=== PATIENT | female | born 1985 | race Caucasian/White ===

== ENCOUNTER 2023-09-29 04:11 | Day surgery (SDC) | payer OTHER ==
[2023-09-28 10:11] VITALS: BMI 31.8
[~2023-09-29 04:11] MED LIST: LIDOCAINE HCL 1%, 10 MG/ML (20ML VIAL) INF ONE; ceFAZolin SODIUM 1 GM VIAL IVPB ONE
[2023-09-29 07:01] LABS: BASO % 0.7 % (0-2.0); HEMATOCRIT 40.6 % (32.4-45.2); HEMOGLOBIN 13.2 GM/dL (10.7-15.3); MCH 28.9 pg (25.7-33.7); MONO % 6.3 % (3.8-10.2); WHITE BLOOD COUNT 10.8 K/mm3 (4.0-10.0)
[2023-09-29 07:04] LABS: EOS % 1.2 % (0-4.5); LYMPH % 31.3 % (8-40); MCHC 32.4 g/dl (32.0-36.0); MEAN PLT VOLUME 8.9 fl (7.5-11.1); NEUT % 60.5 % (42.8-82.8); PLATELET COUNT 249 10^3/uL (134-434); RBC 4.56 M/mm3 (3.60-5.2); RDW 13.2 % (11.6-15.6)
[2023-09-29] MEDS ORDERED: LIDOCAINE HCL 1%, 10 MG/ML (20ML VIAL) ONE (07:21)
[2023-09-29 07:29] LABS: BLOOD UREA NITROGEN 15.6 mg/dL (7-18); CALCIUM 8.3 mg/dL (8.5-10.1)
[2023-09-29 07:32] LABS: CREATININE 0.7 mg/dL (0.55-1.3)
[2023-09-29 07:34] LABS: BILIRUBIN,TOTAL 0.5 mg/dL (0.2-1)
[2023-09-29] MEDS ORDERED: SUCCINYLCHOLINE CHLORIDE 200 MG/10 ML SYRINGE ONE (07:42)
[2023-09-29] MEDS ORDERED: ceFAZolin SODIUM 1 GM VIAL ONE (07:43)
[2023-09-29] MEDS ORDERED: ONDANSETRON 4 MG/2 ML VIAL ONE (07:43)
[2023-09-29] MEDS ORDERED: LIDOCAINE HCL/PF 2% SDV 5ML VIAL ONE (07:43)
[2023-09-29] MEDS ORDERED: DEXAMETHASONE SOD PHOSPHATE 4 MG/1 ML VIAL ONE (07:43)
[2023-09-29] MEDS ORDERED: SODIUM CHLORIDE 0.9% P/F 10 ML VIAL IJ ONE (07:43)
[2023-09-29] MEDS ORDERED: ACETAMINOPHEN INJECTION 100 ML IVPB ONE (07:48)
[2023-09-29] MEDS ORDERED: MIDAZOLAM HCL 2 MG/2 ML SINGLE DOSE VIAL ONE (07:51)
[2023-09-29] MEDS ORDERED: FENTANYL CITRATE/PF 50 MCG/ML VIAL ONE (07:52)
[2023-09-29] MEDS ORDERED: PROPOFOL 80 ML ONE (07:54)
[2023-09-29 08:05] LABS: INR 0.97 (0.83-1.09); PROTHROMBIN TIME (PATIENT) 11.3 SEC (9.7-13.0)
[2023-09-29 08:09] LABS: EPI CELLS 13 /uL (0-25.1); HYALINE CASTS 0 /uL (0-3.1); PH,URINE 5.5 (5.0-8.0); URINE APPEARANCE CLEAR; URINE BACTERIA 5 /uL (0-1359); URINE BILIRUBIN NEGATIVE (NEGATIVE); URINE COLOR YELLOW; URINE GLUCOSE (UA) NEGATIVE (NEGATIVE); URINE KETONE NEGATIVE (NEGATIVE); URINE LEUK ESTERASE 1+ (NEGATIVE); URINE NITRITE NEGATIVE (NEGATIVE); URINE PROTEIN NEGATIVE (NEGATIVE); URINE RBC 4 /uL (0-23.9); URINE UROBILINOGEN 0.2 mg/dL (0.2-1.0); URINE WBC 113 /uL (0-25.8)
[2023-09-29] MEDS ORDERED: ceFAZolin SODIUM 1 GM VIAL IVPB ONE (09:30)
[2023-09-29] MEDS ORDERED: PROPOFOL 20 ML ONE (09:37)
[2023-09-29] MEDS ORDERED: LIDOCAINE HCL 1%, 10 MG/ML (20ML VIAL) INF ONE ×2 (09:39)
[2023-09-29] MEDS ORDERED: GLYCOPYRROLATE 0.2 MG/1 ML VIAL ONE (09:46)
[2023-09-29] MEDS ORDERED: KETAMINE HCL 200 MG/20 ML VIAL ONE (09:46)
[2023-09-29] MEDS ORDERED: LACTATED RINGERS SOLUTION 1,000 ML IV SCH (10:30)
[2023-09-29] MEDS ORDERED: oxyCODONE HCL 5 MG TABLET PO PRN (10:30)
[2023-09-29] MEDS ORDERED: ONDANSETRON 4 MG/2 ML VIAL IVPUSH PRN (10:30)
[2023-09-29 12:11] VITALS: RESP 18
[2023-09-29 13:43] VITALS: BP 125/74; PULSE 64; TEMP 98.2
== END 2023-09-29 13:30 | disposition home or self-care (01) ==
LOC: JASU-SURG 04:11
PROVIDERS: ATTEND Surgery
PROC: 0HBV0ZX Excision of Bilateral Breast, Open Approach, Diagnostic (ICD-10-PCS; principal; 2023-09-29 09:00)
DX: N60.22 Fibroadenosis of left breast (principal); N60.21 Fibroadenosis of right breast
CPT/HCPCS: 36415; 80053; 81003; 81025; 85025; 85610; 86850; 86900; 86901; 94760

== ENCOUNTER 2023-10-07 19:38 | Observation (INO) | payer OTHER ==
[2023-10-07] MEDS ORDERED: ACETAMINOPHEN 1000 MG/100 ML BAG IVPB ONE (20:02)
[2023-10-07] MEDS ORDERED: SODIUM CHLORIDE 0.9% 500 ML INFUS.BAG IV ONE (20:02)
[2023-10-07] MEDS ORDERED: ACETAMINOPHEN INJECTION 100 ML IVPB ONE (20:22)
[2023-10-07 21:12] LABS: BASO % 0.6 % (0-2.0); EOS % 1.8 % (0-4.5); HEMATOCRIT 39.1 % (32.4-45.2); HEMOGLOBIN 13.1 GM/dL (10.7-15.3); LYMPH % 41.7 % (8-40); MCHC 33.5 g/dl (32.0-36.0); MEAN CELL VOLUME 86.8 fl (80-96); MEAN PLT VOLUME 9.5 fl (7.5-11.1); MONO % 6.9 % (3.8-10.2); PLATELET COUNT 276 10^3/uL (134-434); RBC 4.51 M/mm3 (3.60-5.2); RDW 13.3 % (11.6-15.6); WHITE BLOOD COUNT 11.2 K/mm3 (4.0-10.0)
[2023-10-07 21:21] LABS: INR 0.97 (0.83-1.09); PROTHROMBIN TIME (PATIENT) 11.2 SEC (9.7-13.0)
[2023-10-07 21:37] LABS: CALCIUM 9.2 mg/dL (8.5-10.1)
[2023-10-07 21:38] LABS: BLOOD UREA NITROGEN 12.1 mg/dL (7-18)
[2023-10-07 21:41] LABS: CREATININE 0.8 mg/dL (0.55-1.3)
[2023-10-07 21:43] LABS: BILIRUBIN,TOTAL 0.4 mg/dL (0.2-1); TOT PROT 8.3 g/dl (6.4-8.2)
[2023-10-08] MEDS ORDERED: PIPERACILLIN/TAZOB 2.25 GM 2.25 GM in DEXTROSE 5%-WATER - 50 ML IVPB ONE ×2 (00:05→00:40)
[2023-10-08] MEDS ORDERED: KETOROLAC TROMETHAMINE 15 MG/ML VIAL IVPUSH ONE (00:05)
[2023-10-08] MEDS ORDERED: VANCOMYCIN 1,000 MG in DEXTROSE 5%-WATER - 250 ML IVPB ONE (00:05)
[2023-10-08] MEDS ORDERED: KETOROLAC TROMETHAMINE 15 MG/ML VIAL ONE (00:23)
[2023-10-08] MEDS ORDERED: PIPERACILLIN/TAZOB 2.25 GM 2.25 GM/50 ML BAG IVPB ONE ×2 (00:23→00:42)
[2023-10-08] MEDS ORDERED: VANCOMYCIN 1 GRAM (PRE-DOCKED) 1,000 MG/250 ML BAG IVPB ONE (00:42)
[2023-10-08] MEDS ORDERED: SODIUM CHLORIDE 1,000 ML IV SCH (00:45)
[2023-10-08] MEDS ORDERED: KETOROLAC TROMETHAMINE 15 MG/ML VIAL IVPUSH PRN (02:33)
[2023-10-08] MEDS ORDERED: ACETAMINOPHEN 1000 MG/100 ML BAG IVPB PRN (02:34)
[2023-10-08 05:22] VITALS: RESP 18
[2023-10-08 06:40] VITALS: BMI 33.3
[2023-10-08] MEDS ORDERED: PIPERACILLIN/TAZOB 3.375 GM 3.375 GM in DEXTROSE 5%-WATER - 50 ML IVPB SCH (09:00)
[2023-10-08 12:43] VITALS: BP 118/56; PULSE 65; TEMP 98
[2023-10-08] MEDS ORDERED: VANCOMYCIN/WATER 1250 MG 1,250 MG/250 ML BAG IVPB SCH ×2 (14:00)
== END 2023-10-08 14:45 | disposition home or self-care (01) ==
LOC: JER 19:38 → UNDOADMOB 10-08 00:05 → INTOOBSV 10-08 00:05 → JERBED 10-08 00:05 → J5S 10-08 06:22
PROVIDERS: ADMIT Internal Medicine; ATTEND Internal Medicine
PROC: 3E033NZ Introduction of Analgesics, Hypnotics, Sedatives into Peripheral Vein, Percutaneous Approach (ICD-10-PCS; principal; 2023-10-08)
PROC: 3E0333Z Introduction of Anti-inflammatory into Peripheral Vein, Percutaneous Approach (ICD-10-PCS; 2023-10-08)
PROC: 3E03329 Introduction of Other Anti-infective into Peripheral Vein, Percutaneous Approach (ICD-10-PCS; 2023-10-08)
PROC: 3E0337Z Introduction of Electrolytic and Water Balance Substance into Peripheral Vein, Percutaneous Approach (ICD-10-PCS; 2023-10-08)
DX: T88.8XXA Other specified complications of surgical and medical care, not elsewhere classified, initial encounter (principal); E03.9 Hypothyroidism, unspecified; E66.9 Obesity, unspecified; L73.2 Hidradenitis suppurativa; Z29.89 Encounter for other specified prophylactic measures; M79.621 Pain in right upper arm; X58.XXXA Exposure to other specified factors, initial encounter; Y92.9 Unspecified place or not applicable
CPT/HCPCS: 36415; 71260-TC; 80053; 84703; 85025; 85610; 86850; 86900; 86901; 87040; 93005; 93010; 96361; 96365; 96366; 96368; 96375; 96376; 99285-25; G0378; Q9967